=== PATIENT | male | born 1990 | race African-American/Black ===

== ENCOUNTER 2022-08-18 11:46 | Emergency (ER) | payer SELFPAY ==
[~2022-08-18] VITALS: Ht 182.9 cm; Wt 80.0 kg
[2022-08-18 12:16] VITALS: BP 134/90
== END 2022-08-18 23:30 | disposition left against medical advice (07) ==
LOC: ER 11:46
DX: F41.9 Anxiety disorder, unspecified (principal); Z53.21 Procedure and treatment not carried out due to patient leaving prior to being seen by health care provider
CPT/HCPCS: 99281